=== PATIENT | female | born 1990 | race Caucasian/White ===

== ENCOUNTER → 2022-01-28 | Outpatient (CLI) | payer MEDICAID ==
--- NOTE | 2022-01-28 13:10 | XR ---
EXAMINATION TYPE: XR chest 2V DATE OF EXAM: 01/28/2022 12:21 PM COMPARISON: None TECHNIQUE: XR chest 2V Frontal and lateral views of the chest. CLINICAL INDICATION:Female, 32 years old with history of [id number] COUGH,VENOUS INSUFF,FATIGUE; FINDINGS: Lungs/Pleura: There is no evidence of pleural effusion, focal consolidation, or pneumothorax. Pulmonary vascularity: Unremarkable. Heart/mediastinum: Cardiomediastinal silhouette is unremarkable. Musculoskeletal: No acute osseous pathology. IMPRESSION: No acute cardiopulmonary disease/process.
== END | disposition home or self-care (01) ==
LOC: RADXRYALE 12:06
PROVIDERS: ATTEND Physician Assistant Medical
DX: I87.2 Venous insufficiency (chronic) (peripheral) (principal); R05.9 Cough, unspecified; R53.83 Other fatigue
CPT/HCPCS: 71046